=== PATIENT | female | born 1995 | race Two or more races ===

== ENCOUNTER 2017-07-03 18:28 | Emergency (ER) | payer MEDICAID ==
[~2017-07-03] VITALS: Ht 154.9 cm; Wt 71.7 kg
[2017-07-03 18:35] VITALS: BP 131/86
[2017-07-03] MEDS ORDERED: TYLENOL EXTRA500 MG ORAL (18:55)
--- NOTE | 2017-07-03 18:55 | Emergency Room Report ---
History of Present Illness General Chief Complaint: Sore Throat Source: Patient Present Illness HPI 21 yo female patient presents to ER complaining of sore throat x5 days. Reports pain with swallowing foods. Also complains of cough during this time. Denies hemoptysis. Denies vomiting. Denies neck pain. Denies fever, chest pain, SOB. Allergies: Coded Allergies: No Known Allergies (Unverified , 07/03/17) Patient History Past Medical History: see triage record Last Menstrual Period: 06/05/17 Reviewed Nursing Documentation: PMH: Agreed; PSxH: Agreed Nursing Documentation-PMH Past Medical History: No Stated History Review of Systems All Other Systems: negative except mentioned in HPI Physical Exam Vital Signs Date Time Temp Pulse Resp B/P (MAP) Pulse Ox O2 Delivery O2 Flow Rate FiO2 07/03/17 18:35 98.8 110 18 131/86 95 Room Air 98.8 Sp02 EP Interpretation: reviewed, normal General Appearance: well appearing, no apparent distress, alert, GCS 15, non- toxic Head: normocephalic, atraumatic Eyes: bilateral eye normal inspection, bilateral eye PERRL ENT: hearing grossly normal, normal pharynx, no angioedema, normal voice, TMs + canals normal, uvula midline, moist mucus membranes, tonsillar swelling, pharyngeal erythema, tonsillar exudate, other - no uvular deviation Neck: full range of motion, other - no TTP Respiratory: lungs clear, normal breath sounds, no rhonchi, no respiratory distress, no accessory muscle use, no wheezing, speaking full sentences, other - no stridor Cardiovascular #1: regular rate, rhythm, no edema Musculoskeletal: back normal, digits/nails normal, gait/station normal, normal range of motion, non-tender, no calf tenderness Neurologic: alert, oriented x3, responsive, motor strength/tone normal, sensory intact Psychiatric: mood/affect normal Skin: no rash Lymphatic: adenopathy Medical Decision Making PA Attestation Dr. Benoit is my supervising Physician whom patient management has been discussed with. Diagnostic Impression: Primary Impression: Tonsillitis ER Course Pt presents to ED c/o sore throat and cough. DDX considered but are not limited to pharyngitis, laryngitis, URI, peritonsillar abscess, tonsillitis. Low suspicion for peritonsillar abscess, no neck stiffness, no hot potato voice , no stridor. VITAL SIGNS are WNL, patient is afebrile. Pulse mildly elevated, will monitor and re-check prior to discharge. ORDERS: -Penicillin G -Dexamethasone -Viscous Lidocaine ER COURSE: Patient reports feeling better following administration of medication. Patient seen and evaluated by Dr. Benoit, agrees with treatment and plan. Pulse 99, WNL. Patient OK for discharge. Patient informed to return to ER immediately for new or worsening of symptoms. Needs close outpatient followup in 2 days. Patient nontoxic appearing, in no acute distress. DISCHARGE: Rx provided for Tylenol Salt water gargles At this time pt is stable for d/c to home. Patient is resting comfortably, in no acute distress, nontoxic appearing, talking without difficulty. Will provide with patient care instructions and any necessary prescriptions. Patient to take medication as instructed. Care plan and follow-up instructions provided. Patient questions asked and answered. Patient instructed to follow-up with primary care provider in 2-3 days. ER precautions given. Patient instructed to return to ER immediately for any new or worsening of symptoms. Last Vital Signs Date Time Temp Pulse Resp B/P (MAP) Pulse Ox O2 Delivery O2 Flow Rate FiO2 07/03/17 18:35 98.8 110 18 131/86 95 Room Air 98.8 Disposition: HOME, SELF-CARE Condition: Stable Scripts Acetaminophen* (TYLENOL EXTRA STRENGTH*) 500 Mg Tablet 500 MG ORAL Q8H PRN for Prn Headache/Temp > 101, #30 TAB 0 Refills Prov: Maximus Ruiz 07/03/17 Patient Instructions: Tonsillitis Additional Instructions: Followup with primary care provider in 2-3 days. Salt water gargles Rx provided for Tylenol for pain and fever symptoms Drink plenty of water. Take medications as directed. Patient questions asked and answered. ER precautions given, patient instructed to return to ER immediately for any new or worsening of symptoms. Maximus Ruiz Jul 03, 2017 18:55
[2017-07-03] MEDS ORDERED: Dexamethasone 4mg/ml vial IM ONE (19:00)
[2017-07-03] MEDS ORDERED: Bicillin LA 1.2 Million Units Syr IM ONE (19:00)
[2017-07-03] MEDS ORDERED: Lidocaine 2% Visc 15ml soln ORAL ONE (19:00)
[2017-07-03 19:10] VITALS: BP 130/84
== END 2017-07-03 19:30 | disposition home or self-care (01) ==
LOC: EMR 19:22
DX: J03.90 Acute tonsillitis, unspecified (principal); R05 Cough
CPT/HCPCS: 96372; 99283; J0561; J1100